=== PATIENT | male | born 2000 | race Caucasian/White ===

== ENCOUNTER 2018-09-05 10:35 | Emergency (ER) | payer OTHER ==
[2018-09-05 10:43] VITALS: BP 111/66; PULSE 64; TEMP 97.8; BMI 19.2
--- NOTE | 2018-09-05 11:12 | PDOC ---
History of Present Illness - General Chief Complaint: Rectal Bleed Stated Complaint: RECTAL BLEED Time Seen by Provider: 09/05/18 11:00 History Source: Patient - History of Present Illness Timing/Duration: reports: intermittent Past History - Past Medical History Allergies/Adverse Reactions: Allergies Allergy/AdvReac Type Severity Reaction Status Date / Time Penicillins Allergy Hives Verified 09/05/18 11:34 Asthma: Yes COPD: No Other medical history: hemorroids - Immunization History Immunization Up to Date: Yes - Suicide/Smoking/Psychosocial Hx Smoking Status: No Smoking History: Current every day smoker Have you smoked in the past 12 months: No Number of Cigarettes Smoked Daily: 0 Information on smoking cessation initiated: No Hx Alcohol Use: No Drug/Substance Use Hx: No Substance Use Type: None Hx Substance Use Treatment: No Review of Systems - Review of Systems Constitutional: No: Chills, Fever, Weakness ABD/GI: Yes: Blood Streaked Bowels. No: Diarrhea, Nausea, Vomiting, Abdominal cramping, Tarry Stools *Physical Exam - Vital Signs Last Vital Signs Temp Pulse Resp BP Pulse Ox 97.8 F 64 18 111/66 100 09/05/18 10:40 09/05/18 10:40 09/05/18 10:40 09/05/18 10:40 09/05/18 10:40 - Physical Exam Comments: 09/05/18 11:20 well gonzalo, currently texting on phone General Appearance: Yes: Appropriately Dressed. No: Apparent Distress HEENT: positive: Normal Voice Neck: positive: Supple Respiratory/Chest: negative: Respiratory Distress Gastrointestinal/Abdominal: positive: Soft. negative: Tender Rectal Exam: positive: other (declines exam) Integumentary: positive: Dry, Warm Neurologic: positive: Fully Oriented, Alert, Normal Mood/Affect ED Treatment Course - LABORATORY CBC & Chemistry Diagram: 09/05/18 11:25 09/05/18 11:25 Medical Decision Making - Medical Decision Making 09/05/18 11:13 18 yo M, here for evaluation of continued intermittent BRBPR. Pt endorses h/o chronic intermittent BRBPR over the past year. Associated with bowel movements. Has been seen by Dr. Schaefer and had normal colonoscopy per pt. At some point he was told he had hemorrhoids and was treated for same. States the last time he had bright red blood in his stool was yesterday. Not currently constipated and no diarrhea, rectal pain/swelling, acute abdominal pain, nausea , vomiting, fever, chills, weakness or dizziness. States he is unable to see Dr. Schaefer because he now has a new insurance and has not yet arranged to see a new GI doctor. See exam Chronic intermittent BRBPR Nl scope w/ GI in past per pt Well gonzalo and stable, declines rectal exam -will check cbc -anticipate dc w/ GI f/u for further eval 09/05/18 11:56 CBC wnl. Will dc w/ GI f/u. Reasons to return d/w pt *DC/Admit/Observation/Transfer Diagnosis at time of Disposition: BRBPR (bright red blood per rectum) - Discharge Dispostion Disposition: HOME Condition at time of disposition: Stable - Referrals - Patient Instructions Printed Discharge Instructions: DI for Rectal Bleeding Additional Instructions: Your blood work was normal here. You need to be evaluated by a collection team lead for continued GI bleeding. You can call Dr. Holman for an appointment. If M.D. does not accept your insurance, you can call the number on the back of yourr insurance card to get a list of GI providers who accepts your insurance. Return to ER for any worsening of symptoms - Post Discharge Activity Forms/Work/School Notes: Back to School
[2018-09-05 11:32] LABS: BASO % 0.4 % (0-2.0); EOS % 2.2 % (0-4.5); HEMATOCRIT 45.2 % (35.4-49); HEMOGLOBIN 15.5 GM/dL (11.7-16.9); LYMPH % 17.6 % (8-40); MCH 31.6 pg (25.7-33.7); MCHC 34.3 g/dl (32.0-35.9); MEAN CELL VOLUME 92.2 fl (80-96); MEAN PLT VOLUME 7.2 fl (7.5-11.1); MONO % 5.5 % (3.8-10.2); NEUT % 74.3 % (42.8-82.8); PLATELET COUNT 307 K/MM3 (134-434); RDW 14.2 % (11.9-15.9); WHITE BLOOD COUNT 7.8 K/mm3 (4.0-10.0)
[2018-09-05 11:59] LABS: ALBUMIN 3.9 g/dl (3.4-5.0); ALK PHOS 74 U/L (45-117); ANION GAP 4 MMOL/L (8-16); BILIRUBIN,TOTAL 0.7 mg/dL (0.2-1); BLOOD UREA NITROGEN 13 mg/dL (7-18); CALCIUM 8.8 mg/dL (8.5-10.1); CHLORIDE 105 mmol/L (98-107); CO2 27 mmol/L (21-32); CREATININE 0.8 mg/dL (0.55-1.3); GLUCOSE,RANDOM 148 mg/dL (74-106); POTASSIUM 3.5 mmol/L (3.5-5.1); SGOT/AST 15 U/L (15-37); SGPT/ALT 32 U/L (13-61); SODIUM 136 mmol/L (136-145); TOT PROT 7.9 g/dl (6.4-8.2)
== END 2018-09-05 12:55 | disposition home or self-care (01) ==
LOC: JER 10:35
DX: K62.5 Hemorrhage of anus and rectum (principal)
CPT/HCPCS: 36415; 80053; 85025; 99281-25

== ENCOUNTER 2020-11-01 17:04 | Emergency (ER) | payer OTHER ==
[2020-11-01 17:18] VITALS: BP 105/70; PULSE 60; TEMP 98.1; BMI 23.4
[2020-11-01] MEDS ORDERED: ACETAMINOPHEN 325 MG TABLET (FP) PO ONE (17:26)
[2020-11-01] MEDS ORDERED: ACETAMINOPHEN 325 MG TABLET (FP) ONE (17:30)
== END 2020-11-01 18:32 | disposition home or self-care (01) ==
LOC: JERFT 17:04
DX: R51.9 Headache, unspecified (principal)
CPT/HCPCS: 70450-TC; 99284-25